=== PATIENT | female | born 1980 | race Two or more races ===

== ENCOUNTER → 2017-03-22 | Outpatient (CLI) | payer BC ==
--- NOTE | ~2017-03-22 | US17 ---
[facility] A Service of [facility] RADIOLOGY TEXT RESULTS PATIENT: DONNY SHARP LOCATION: [facility] : 80 UNIT #: [id number] AGE: [address]: JUAN M MARTINS APRN SEX: F ORDER DR: [id number] [place], [place] [address] [id number] O MR#: [id number] Acc #: [id number] NAME: DONNY SHARP : 1980 SEX: F STUDY DATE/TIME: 03/22/2017 12:52 UNIT: [facility] ROOM: STUDY DESCRIPTION: US Breast Bilateral Attending Physician: Sheyla Martins M.D. Referring Physician: Sheyla Martins M.D. Ordering Physician: Sheyla Martins M.D. Primary Care Physician: Jaxson Harris M.D. MEDICAL IMAGING REPORT This report is preliminary unless electronic signature is present EXAM Bilateral diagnostic breast ultrasound. DATE 03/22/2017 HISTORY Bilateral breast pain. Palpable abnormality in the right breast. Symptoms present for 8 months. COMPARISON None FINDINGS Targeted sonographic imaging was obtained of each breast. In the right breast, targeted sonographic imaging was obtained in the region of palpable complaint in the area of the patient's underwire. Sample images were stored from the 5 o'clock through the 10 o'clock axis. Normal fibroglandular tissue is seen without cystic or solid abnormality, architectural distortion, or microcalcification. Targeted sonographic imaging was obtained of the left breast at the patient's area of underwire, corresponding to the patient's pain, but no palpable abnormality. Sample images were acquired from the 2 o'clock through the 9 o'clock axis. Normal fibroglandular tissue is seen without cystic or solid abnormality. No architectural distortion or microcalcification is seen. IMPRESSION BIRADS 1. Negative bilateral diagnostic breast ultrasound. No sonographic abnormality to explain the patient's right breast palpable complaint or bilateral breast pain. Any further management should be based upon clinical assessment. The findings and recommendations were [facility] A Service of [facility] RADIOLOGY TEXT RESULTS PATIENT: DONNY SHARP LOCATION: [facility] : 80 UNIT #: [id number] AGE: [address]: JUAN M MARTINS APRN SEX: F ORDER DR: discussed with the patient in great detail today in the radiology apartment via an solution strategist. She verbalized understanding. BIRADS: 1 Negative Dictated by... Michelle Hastings M.D. THIS IS AN ELECTRONICALLY VERIFIED REPORT Michelle Hastings M.D. at 03/23/2017 8:[address] [facility]/jaden TD: 03/22/2017 19:27 JOB #: [id number] MEDICAL IMAGING REPORT Page 1 of 1 COPY
== END | disposition home or self-care (01) ==
LOC: CWCC 12:37
DX: N64.4 Mastodynia (principal)
CPT/HCPCS: 76641